=== PATIENT | female | born 1995 | race Caucasian/White ===

== ENCOUNTER 2017-02-10 05:52 | Emergency (ER) | payer OTHER ==
[2017-02-10] MEDS ORDERED: fentaNYL PF 100 MCG/2 ML VIAL IV PRN (06:15)
[2017-02-10] MEDS ORDERED: IV NORMAL SALINE 1,000ML 1,000 ML IV SCH (06:30)
[2017-02-10] MEDS ORDERED: ONDANSETRON PF 4 MG/2 ML VIAL. IV ONE (06:30)
[2017-02-10 06:48] LABS: BASO # 0.1 x10^3/uL (0.0-0.2); BASO % 1 % (0-3); EOS # 0.5 x10^3/uL (0.0-0.7); EOS % 6 % (0-3); HEMATOCRIT 37.1 % (36.0-47.0); HEMOGLOBIN 12.8 g/dL (12.0-15.5); LYMPH # 2.3 x10^3/uL (1.0-4.8); LYMPH % 30 % (24-48); MEAN CORPUSCULAR HEMOGLOBIN 33 pg (25-35); MEAN CORPUSCULAR HGB CONC 34 g/dL (31-37); MEAN CORPUSCULAR VOLUME 94 fL (79-100); MONO # 0.8 x10^3/uL (0.0-1.1); MONO % 11 % (0-9); NEUT # 3.9 x10^3uL (1.8-7.7); NEUT % 52 % (31-73); PLATELET COUNT 197 x10^3/uL (140-400); RED BLOOD COUNT 3.94 x10^6/uL (3.50-5.40); RED CELL DISTRIBUTION WIDTH 12.6 % (11.5-14.5); WHITE BLOOD COUNT 7.6 x10^3/uL (4.0-11.0)
[2017-02-10 06:54] LABS: ALBUMIN 3.6 g/dL (3.4-5.0); CALCIUM 8.2 mg/dL (8.5-10.1); CREATININE 0.9 mg/dL (0.6-1.0); POTASSIUM 3.5 mmol/L (3.5-5.1)
--- NOTE | 2017-02-10 06:58 | PHYS DOC ---
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 Patient was waked up at 5 AM with left flank pain that she describes as severe. When it started she was sweaty. She plays soccer and for about 1 week has felt like her urine output was slightly decreased, also with some urinary burning. She's been pushing fluids for a day or 2. She's had no fever or chills. No nausea or vomiting. Last and stroke. January 19. She is not using any contraception. She denies possibility of . She is healthy with no medical problems. She's never had anything like this before. Denies any type of injury. She thinks her dad has had a kidney stone. Review of Systems Review of Systems Constitutional: Denies fever or chills [] Respiratory: Denies cough or shortness of breath [] Cardiovascular: Denies chest pain GI: As in history of present illness : As in history of present illness Musculoskeletal: Denies pain elsewhere Integument: Denies rash or skin lesions [] Neurologic: Denies headache, focal weakness or sensory changes [] Current Medications Current Medications Current Medications Medications (Trade) Dose Ordered Sig/Abdi Start Time Stop Time Status Last Admin Dose Admin Fentanyl Citrate (Fentanyl 2ml Vial) 50 mcg PRN Q15MIN PRN 02/10/17 06:15 02/11/17 06:14 02/10/17 06:45 50 MCG Ondansetron HCl (Zofran) 4 mg 1X ONCE 02/10/17 06:30 02/10/17 06:31 DC 02/10/17 06:45 4 MG Sodium Chloride 1,000 ml @ 1,000 mls/hr Q1H 02/10/17 06:30 02/10/17 07:29 02/10/17 06:45 1,000 MLS/HR Allergies Allergies Allergies Coded Allergies Type Severity Reaction Last Updated Verified No Known Allergies Allergy Unknown 02/10/17 Yes Physical Exam Physical Exam Constitutional: Well developed, well nourished, no acute distress, non-toxic appearance. Alert, appears uncomfortable but not acute, mentating normally. HENT: Normocephalic, atraumatic, bilateral external ears normal, nose normal. [ ] Eyes: conjunctiva normal, no discharge. [] Neck: Normal range of motion, no stridor. [] Cardiovascular:Heart rate regular rhythm, no murmur [] Lungs & Thorax: Bilateral breath sounds clear to auscultation [] Abdomen: Bowel sounds normal, soft, no tenderness, no masses, no pulsatile masses. No significant amount of left-sided abdominal tenderness to palpation, no rebound or guarding. Skin: Warm, dry, no erythema, no rash. [] Back: Some tenderness to palpation of the left flank. Extremities: No tenderness, no cyanosis, no clubbing, ROM intact, no edema. [] Neurologic: Alert and oriented X 3, normal motor function, normal sensory function, no focal deficits noted. [] Current Patient Data Vital Signs Vital Signs Date Time Temp Pulse Resp B/P (MAP) Pulse Ox O2 Delivery O2 Flow Rate FiO2 02/10/17 06:45 20 98 Room Air 02/10/17 06:00 97.6 70 EKG EKG [] Radiology/Procedures Radiology/Procedures CT scan of the abdomen and pelvis read by the radiologist. 3-4 mm stone in the distal left ureter without significant [place]. The left renal pelvis and proximal ureter are mildly dilated. [] Course & Med Decision Making Course & Med Decision Making Pertinent Labs and Imaging studies reviewed. (See chart for details) 21-year-old healthy female presents with 1 hour of left flank pain. Seems likely to be a kidney stone. I discussed with the patient that we will start an IV, give her some fluids, pain and nausea medicines, do some blood tests and a CAT scan as well as urinalysis, she is agreeable to that plan. Labs unremarkable, urinalysis positive for blood, CT scan shows a left distal ureter kidney stone. Patient was treated with Flomax and Toradol, 1 L of IV fluids. Patient and her father were counseled on treatment and follow-up for kidney stone. See instructions for plan. [] Dragon Disclaimer Dragon Disclaimer This chart was dictated in whole or in part using Voice Recognition software in a busy, high-work load, and often noisy Emergency Department environment. It may contain unintended and wholly unrecognized errors or omissions. Departure Departure: Impression: Primary Impression: Left ureteral stone Additional Impression: Ureteral colic Disposition: 01 HOME, SELF-CARE Condition: STABLE Referrals: PCP,UNKNOWN (PCP) Patient Instructions: Kidney Stones, [id number], Ureteral Colic, [id number] Additional Instructions: As we discussed, you have a stone in the left ureter which is almost to pass, and is likely to pass by itself. It may cause more pain before it passes, or it might not. We will treat by having you drink plenty of fluids, and to medications to relax the smooth muscle of the ureter to help pass the stone and also help with pain. Strain urine until you pass the stone, save the stone to take with you to the urologist. Flomax to relax ureter muscle, one daily. First dose was given here in emergency department today. Ibuprofen which also helps relax the ureter muscle, 600 mg every 6-8 hours. Hydrocodone for more severe pain if needed, no driving if you have to take this. It is safe to combine Flomax, ibuprofen, and hydrocodone if necessary. Get a referral to make a urology appointment. See a urologist for follow-up. You do have other small kidney stones. Also, if you have pain that is severe and you need to return to emergency, have a plan of which emergency Department you will go to the based on where your urology referral is. Scripts Hydrocodone Bit/Acetaminophen (NORCO 5-325 TABLET) 1 Each Tablet 1 TAB PO PRN Q6HRS Y for PAIN, #10 TAB 0 Refills Prov: DAKOTAH FUENTES MD 02/10/17 Ibuprofen (IBUPROFEN) 800 Mg Tablet 1 TAB PO TID for kidney stone pain, #30 TAB Take until kidney stone passes, then stop Prov: DAKOTAH FUENTES MD 02/10/17 Tamsulosin Hcl (FLOMAX) 0.4 Mg Cap.er.24h 1 CAP PO DAILY for kidney stone pain, #14 CAP 11 Refills Take until kidney stone passes, then stop Prov: DAKOTAH FUENTES MD 02/10/17 Problem Qualifiers DAKOTAH FUENTES MD Feb 10, 2017 06:57
[2017-02-10 07:06] LABS: ALBUMIN/GLOBULIN RATIO 1.3 (1.0-1.7); TOTAL BILIRUBIN 0.4 mg/dL (0.2-1.0); TOTAL PROTEIN 6.4 g/dL (6.4-8.2)
--- NOTE | 2017-02-10 07:26 | RAD ---
CT of the abdomen and pelvis 02/10/2017: History: Left flank pain Noncontrast scans were obtained utilizing the renal stone protocol. This is a limited study for evaluation of the possibility of urinary tract calculi. There is a single tiny intrarenal calculus on the right. The right renal collecting system and right ureter are not dilated. The distal right ureter cannot be clearly traced through the pelvis. Multiple lower pelvic calcifications bilaterally are predominantly phleboliths. On the left, there are couple of very tiny faint radiopacities in the medullary regions. The left renal pelvis and proximal ureter are mildly dilated. The distal ureter cannot be clearly traced through the pelvis in this patient. There is a 3-4 mm radiopacity along the posterior wall of the urinary bladder on the left suggesting a calculus lodged in the intramural segment of the distal left ureter. The partially filled urinary bladder is otherwise unremarkable. The unopacified liver is unremarkable. The gallbladder shows no abnormality. No pancreatic abnormality is detected. The spleen is of normal size.The uterus is somewhat retroverted. The bowel loops are not dilated. A portion of the appendix is visualized and it is unremarkable. No free air is evident in the abdomen or pelvis. There is a small amount of free fluid in the pelvis. This amount of fluid can be on a physiologic basis. IMPRESSION: 1. Probable small calculus lodged in the intramural segment of the distal left ureter at the UVJ. 2. Tiny bilateral intrarenal calculi. 3. Tiny amount of free fluid in the pelvis, likely on a physiologic basis. PQRS Compliance Statement: One or more of the following individualized dose reduction techniques were utilized for this examination: 1. Automated exposure control 2. Adjustment of the mA and/or kV according to patient size 3. Use of iterative reconstruction technique
[2017-02-10 07:48] LABS: BILIRUBIN,URINE NEG (NEG); CLARITY,URINE HAZY; COLOR,URINE AMBER; GLUCOSE,URINE NEG (NEG)
[2017-02-10 07:49] LABS: BACTERIA,URINE FEW /HPF (0-FEW); NITRITE,URINE NEG (NEG); RBC,URINE 20-40 /HPF (0-2); SQUAMOUS EPITHELIAL CELL,UR FEW /LPF; UROBILINOGEN,URINE 0.2 mg/dL (0.2 mg/dL)
[2017-02-10] MEDS ORDERED: TAMS0.4C97 PO (07:54)
[2017-02-10] MEDS ORDERED: IBUP800T19 PO (07:54)
[2017-02-10] MEDS ORDERED: HYDR-971 PO (07:54)
[2017-02-10 08:00] VITALS: BP 119/75
[2017-02-10] MEDS ORDERED: KETOROLAC 30 MG/ML VIAL. IV ONE (08:10)
[2017-02-10] MEDS ORDERED: TAMSULOSIN 0.4 MG CAP.ER.24H. PO ONE (08:10)
== END 2017-02-10 08:05 | disposition home or self-care (01) ==
LOC: ER 05:52
DX: N20.1 Calculus of ureter (principal)
CPT/HCPCS: 36415; 74176; 80053; 81001; 81025; 83690; 85025; 96361; 96374; 96375; 99285; J1885; J2405; J3010; J7030

== ENCOUNTER 2019-02-17 12:08 | Emergency (ER) | payer OTHER ==
[~2019-02-17] VITALS: Ht 160 cm; Wt 81.6 kg
[~2019-02-17 12:08] MED LIST: HYDR-3165 PO; IBUP800T19 PO; TAMS0.4C97 PO
[2019-02-17 12:49] LABS: BASO # 0.1 x10^3/uL (0.0-0.2); BASO % 1 % (0-3); EOS # 0.4 x10^3/uL (0.0-0.7); EOS % 6 % (0-3); HEMOGLOBIN 15.1 g/dL (12.0-15.5); LYMPH # 1.9 x10^3/uL (1.0-4.8); LYMPH % 31 % (24-48); MEAN CORPUSCULAR HEMOGLOBIN 33 pg (25-35); MEAN CORPUSCULAR HGB CONC 34 g/dL (31-37); MEAN CORPUSCULAR VOLUME 95 fL (79-100); MONO # 0.7 x10^3/uL (0.0-1.1); MONO % 11 % (0-9); NEUT # 3.2 x10^3uL (1.8-7.7); NEUT % 51 % (31-73); PLATELET COUNT 232 x10^3/uL (140-400); RED BLOOD COUNT 4.63 x10^6/uL (3.50-5.40); RED CELL DISTRIBUTION WIDTH 12.4 % (11.5-14.5); WHITE BLOOD COUNT 6.3 x10^3/uL (4.0-11.0)
--- NOTE | 2019-02-17 12:54 | PHYS DOC ---
Past History Past Medical History: No Pertinent History Past Surgical History: No Surgical History Alcohol Use: None Drug Use: None Adult General Chief Complaint Chief Complaint: Chest Pain HPI HPI 23 old female presents with chest pain and left arm tingling. Patient started to have left tingling couple days ago when she was in [facility]. It came out of nowhere with no warning. She had tingling all over the posterior aspect of her left hand. At that time, she was not short of breath and did not of chest pain. The patient went for a run yesterday and had chest pain. She runs every day so this is unusual. It was left-sided and radiated around her left breast. She continues to have some chest tightness today which she describes as mild, but always there. Exertion does make it worse. The patient has no history of heart trouble. She denies smoking, heavy alcohol consumption, or any drug use. She has no family history of early cardiac disease. She denies fever or chills. Review of Systems Review of Systems Constitutional: Denies fever or chills [] Eyes: Denies change in visual acuity, redness, or eye pain [] HENT: Denies nasal congestion or sore throat [] Respiratory: Denies cough or shortness of breath [] Cardiovascular: No additional information not addressed in HPI [] GI: Denies abdominal pain, nausea, vomiting, bloody stools or diarrhea [] : Denies dysuria or hematuria [] Musculoskeletal: Denies back pain or joint pain [] Integument: Denies rash or skin lesions [] Neurologic: Denies headache, focal weakness or sensory changes. Left hand tingling [] Endocrine: Denies polyuria or polydipsia [] All other systems were reviewed and found to be within normal limits, except as documented in this note. Allergies Allergies Allergies Coded Allergies Type Severity Reaction Last Updated Verified No Known Allergies Allergy Unknown 02/10/17 Yes Physical Exam Physical Exam Constitutional: Well developed, well nourished, no acute distress, non-toxic appearance. [] HENT: Normocephalic, atraumatic, bilateral external ears normal, oropharynx moist, no oral exudates, nose normal. [] Eyes: PERRLA, EOMI, conjunctiva normal, no discharge. [] Neck: Normal range of motion, no tenderness, supple, no stridor. [] Cardiovascular:Heart rate regular rhythm, no murmur [] Lungs & Thorax: Bilateral breath sounds clear to auscultation [] Abdomen: Bowel sounds normal, soft, no tenderness, no masses, no pulsatile masses. [] Skin: Warm, dry, no erythema, no rash. [] Back: No tenderness, no CVA tenderness. [] Extremities: No tenderness, no cyanosis, no clubbing, ROM intact, no edema. [] Neurologic: Alert and oriented X 3, normal motor function, normal sensory function, no focal deficits noted. [] Psychologic: Affect normal, judgement normal, mood normal. [] Current Patient Data Lab Results Laboratory Tests Test 02/17/19 12:33 White Blood Count 6.3 x10^3/uL (4.0-11.0) Red Blood Count 4.63 x10^6/uL (3.50-5.40) Hemoglobin 15.1 g/dL (12.0-15.5) Hematocrit 44.0 % (36.0-47.0) Mean Corpuscular Volume 95 fL (79-100) Mean Corpuscular Hemoglobin 33 pg (25-35) Mean Corpuscular Hemoglobin Concent 34 g/dL (31-37) Red Cell Distribution Width 12.4 % (11.5-14.5) Platelet Count 232 x10^3/uL (140-400) Neutrophils (%) (Auto) 51 % (31-73) Lymphocytes (%) (Auto) 31 % (24-48) Monocytes (%) (Auto) 11 % (0-9) H Eosinophils (%) (Auto) 6 % (0-3) H Basophils (%) (Auto) 1 % (0-3) Neutrophils # (Auto) 3.2 x10^3uL (1.8-7.7) Lymphocytes # (Auto) 1.9 x10^3/uL (1.0-4.8) Monocytes # (Auto) 0.7 x10^3/uL (0.0-1.1) Eosinophils # (Auto) 0.4 x10^3/uL (0.0-0.7) Basophils # (Auto) 0.1 x10^3/uL (0.0-0.2) EKG EKG Sinus rhythm, rate 77, normal axis, no ST elevations or depressions.[] Radiology/Procedures Radiology/Procedures [] Impressions: Chest, PA and Lateral: Technique: PA and lateral views of the chest were obtained. History: Shortness of breath. Comparison: None. Findings: The cardiomediastinal silhouette grossly appears unremarkable. Mild prominent bilateral interstitial lung markings likely mild congestive changes or bronchitis. Mild degenerative changes thoracic spine. IMPRESSION: Mild prominent bilateral perihilar interstitial lung markings could be mild congestive changes or bronchitis. Electronically signed by: Ramesh Chin MD (02/17/2019 12:53 PM) [place] [id number] DICTATED AND SIGNED BY: RAMESH CHIN MD DATE: 02/17/19 [id number] CC: INDIRA MARRERO DO; MILTON KEANE MD ~ Course & Med Decision Making Course & Med Decision Making Pertinent Labs and Imaging studies reviewed. (See chart for details) The patient's labs are unremarkable. Her urinalysis is negative for infection. Her d-dimer is negative. Her troponin is negative. Her EKG is unremarkable. Her chest x-ray does show possible bronchitis. See official report for more details. She does not have a fever. I will not treat her with antibiotics at this time. She is stable for discharge with supportive care. [] Dragon Disclaimer Dragon Disclaimer This electronic medical record was generated, in whole or in part, using a voice recognition dictation system. Departure Departure: Impression: Primary Impression: Bronchitis Disposition: 01 HOME, SELF-CARE Condition: STABLE Referrals: MILTON KEANE MD (PCP) Patient Instructions: Acute Bronchitis, [id number] Scripts Albuterol Sulfate (VENTOLIN HFA INHALER) 18 Gm Hfa.aer.ad 2 PUFF IH PRN Q4HRS PRN for FOR ASTHMA, #1 INHALER 0 Refills Prov: INDIRA MARRERO DO 02/17/19 INDIRA MARRERO DO Feb 17, 2019 12:54
[2019-02-17 13:05] LABS: ALBUMIN/GLOBULIN RATIO 1.2 (1.0-1.7); CALCIUM 9.2 mg/dL (8.5-10.1); CREATININE 0.9 mg/dL (0.6-1.0); GFR 77.6; POTASSIUM 3.9 mmol/L (3.5-5.1); TOTAL BILIRUBIN 0.6 mg/dL (0.2-1.0); TOTAL PROTEIN 7.3 g/dL (6.4-8.2)
--- NOTE | 2019-02-17 13:19 | EKG ---
[address] [address] Test Date: 2019-02-17 Test Time: 12:35:56 Pat Name: VIRY BORRERO Department: Room: Gender: F Desktop Specialist: : [id number] Requested By: INDIRA MARRERO Order Number: [id number] Reading MD: Sumeet Ocampo MD Measurements Intervals [place] Rate: 77 P: 33 UT: 170 QRS: 48 QRSD: 78 T: 23 QT: 366 QTc: 416 Interpretive Statements SINUS RHYTHM Electronically Signed On 02-18-2019 14:13:25 CDT by Sumeet Ocampo MD
[2019-02-17 14:35] LABS: BACTERIA,URINE 0 /HPF (0-FEW); BILIRUBIN,URINE NEG (NEG); CLARITY,URINE CLEAR; COLOR,URINE YELLOW; GLUCOSE,URINE NEG (NEG); NITRITE,URINE NEG (NEG); RBC,URINE 0 /HPF (0-2); SQUAMOUS EPITHELIAL CELL,UR FEW /LPF; UROBILINOGEN,URINE 0.2 mg/dL (0.2 mg/dL); WBC,URINE 0 /HPF (0-4)
[2019-02-17] MEDS ORDERED: ALBU2.5V8 IH (14:42)
[2019-02-17 14:45] VITALS: BP 121/60
== END 2019-02-17 14:50 | disposition home or self-care (01) ==
LOC: ER 12:08
DX: J40 Bronchitis, not specified as acute or chronic (principal); R20.2 Paresthesia of skin
CPT/HCPCS: 36415; 71046; 80053; 81001; 84484; 85025; 85379; 93005; 99285